=== PATIENT | female | born 1930 | race Caucasian/White ===

== ENCOUNTER 2017-06-08 09:23 | Emergency (ER) | payer MEDICARE, OTHER ==
--- NOTE | 2017-06-08 10:05 | RADIOLOGY REPORT (SQ) ---
EXAM DESCRIPTION: CHEST SINGLE VIEW COMPLETED DATE/TIME: 06/08/2017 9:54 am REASON FOR STUDY: cp COMPARISON: 05/12/2015 EXAM PARAMETERS: NUMBER OF VIEWS: One view. TECHNIQUE: Single frontal radiographic view of the chest acquired. RADIATION DOSE: NA LIMITATIONS: None. FINDINGS: LUNGS AND PLEURA: Chronic elevation left diaphragm. No evidence of pulmonary edema or pne umonia. MEDIASTINUM AND HILAR STRUCTURES: Stable. HEART AND VASCULAR STRUCTURES: Stable heart size. BONES: No acute findings. HARDWARE: None in the chest. OTHER: No other significant finding. IMPRESSION: NO ACUTE RADIOGRAPHIC FINDING IN THE CHEST. TECHNICAL DOCUMENTATION: JOB ID: [id number] [employer]- All Rights Reserved Reading location - IP/workstation name: [email or web address]
[2017-06-08] MEDS ORDERED: ASPIRIN 81 MG TABLET, CHEWABLE PO ONE (10:10)
[2017-06-08 10:12] LABS: ALANINE AMINOTRANSFERASE 20 U/L (9-52); ALBUMIN 3.9 g/dL (3.5-5.0); ALKALINE PHOSPHATASE 57 U/L (38-126); ANION GAP 13 (5-19); ASPARTATE AMINO TRANSFERASE 20 U/L (14-36); BILIRUBIN,DIRECT 0.3 mg/dL (0.0-0.4); BILIRUBIN,TOTAL 0.8 mg/dL (0.2-1.3); BLOOD UREA NITROGEN 21 mg/dL (7-20); CALCIUM 9.5 mg/dL (8.4-10.2); CARBON DIOXIDE 27 mmol/L (22-30); CHLORIDE 104 mmol/L (98-107); CREATINE KINASE 45 U/L (30-135); GLUCOSE 156 mg/dL (75-110); POTASSIUM 3.9 mmol/L (3.6-5.0); SODIUM 144.3 mmol/L (137-145); TOTAL PROTEIN 6.9 g/dL (6.3-8.2)
--- NOTE | 2017-06-08 10:13 | ER Document Report ---
ED Cardiac - General Chief Complaint: Chest Pain Stated Complaint: CHEST PAIN Time Seen by Provider: 06/08/17 09:49 Mode of Arrival: Medic Information source: Patient Notes: Pt is an 87 year old female with a history of HTN who presents to the ER today from assisted living for chest wall pain after she bent over to turkey picker the paper this morning and felt a pop in her left chest. She states at this time the pain is resolved, only tender to touch in one specific spot to the left chest. She denies shortness of breath, nausea, radiation of the pain anywhere. She has no history of heart attack or stroke. TRAVEL OUTSIDE OF THE [place] IN LAST 30 DAYS: No - Related Data Allergies/Adverse Reactions: No Known Allergies Allergy (Verified 06/08/17 09:46) Past Medical History - General Information source: Patient - Social History Smoking Status: Never Smoker Chew tobacco use (# tins/day): No Frequency of alcohol use: None Drug Abuse: None Family History: Reviewed & Not Pertinent Patient has suicidal ideation: No Patient has homicidal ideation: No - Past Medical History Cardiac Medical History: Reports: Hx Hypercholesterolemia, Hx Hypertension Denies: Hx Heart Attack Pulmonary Medical History: Denies: Hx Asthma Neurological Medical History: Denies: Hx Cerebrovascular Accident, Hx Seizures Renal/ Medical History: Denies: Hx Peritoneal Dialysis GI Medical History: Denies: Hx Hepatitis, Hx Hiatal Hernia, Hx Ulcer Infectious Medical History: Denies: Hx Hepatitis Past Surgical History: Reports: Hx Abdominal Surgery - Part of bowel removed, Hx Orthopedic Surgery - [place] left leg, right knee replacement. Denies: Hx Mastectomy, Hx Open Heart Surgery, Hx Pacemaker - Immunizations Hx Diphtheria, Pertussis, Tetanus Vaccination: Yes Hx Pneumococcal Vaccination: 02/10/14 Review of Systems - Review of Systems Constitutional: No symptoms reported EENT: No symptoms reported Cardiovascular: See HPI Respiratory: No symptoms reported Gastrointestinal: No symptoms reported Genitourinary: No symptoms reported Female Genitourinary: No symptoms reported Musculoskeletal: See HPI Skin: No symptoms reported Hematologic/Lymphatic: No symptoms reported Neurological/Psychological: No symptoms reported Physical Exam - Vital signs Vitals: Resp Pulse Ox 19 97 06/08/17 09:32 06/08/17 09:32 - Notes Notes: PHYSICAL EXAMINATION: GENERAL: Well-appearing and in no acute distress. HEAD: Atraumatic, normocephalic. EYES: Pupils equal round and reactive to light, extraocular movements intact, sclera anicteric, conjunctiva are normal. ENT: ear canals without erythema or foreign body, TMs pearly sotomayor with good bony landmarks, nares patent, oropharynx clear without exudates. Moist mucous membranes. airway patent NECK: Normal range of motion, supple without lymphadenopathy LUNGS: CTAB and equal. No wheezes rales or rhonchi. HEART: left anterior chest tender to palpation, Regular rate and rhythm without murmurs ABDOMEN: Soft, no tenderness. No guarding, no rebound BACK: no vertebral tenderness, normal ROM GI/: no CVA tenderness EXTREMITIES: Normal range of motion, no pitting edema. No cyanosis. NEUROLOGICAL: Cranial nerves grossly intact. Normal sensory/motor exams. PSYCH: Normal mood, normal affect. SKIN: Warm, Dry, normal turgor, no rashes or lesions noted Course - Re-evaluation Re-evalutation: 06/08/17 11:11 WBC is 20.3, cardiac enzymes normal, EKG without evidence of ischemia or abnormality, labwork otherwise unremarkable, chest x ray without abnormality/ pathology. Pt denies dysuria or fever/chills, cough, recent illness, feeling poorly at all. The pain in the left side of her chest has subsided and is only tender over one specific spot with one finger on deep palpation. She says "I feel great" and with family at bedside saying she's acting normally, I did give the option to do further workup but they decline and state "she'd like to go home." patient agrees with this and promises that if anything changes, she feels poorly, the chest pain returns, fever, nausea, vomiting, etc, that she will tell someone or call 911 to return for further workup. Pt is sound in mind and wants to go home with no further workup at this time. 06/08/17 21:15 - Vital Signs Vital signs: Temp Pulse Resp BP Pulse Ox 97.6 F 20 130/93 H 94 06/08/17 09:44 06/08/17 10:01 06/08/17 10:01 06/08/17 10:01 - Laboratory Result Diagrams: 06/08/17 09:33 06/08/17 09:33 Laboratory results interpreted by me: 04/29/18 04/29/18 09:33 09:33 WBC 20.3 H MCV 99 H Seg Neuts % (Manual) 32 L Lymphocytes % (Manual) 63 H Abs Lymphs (Manual) 12.8 H BUN 21 H Est GFR (Non-Af Amer) 50 L Glucose 156 H Discharge - Discharge Clinical Impression: Chest wall pain Condition: Stable Disposition: HOME, SELF-CARE Instructions: Chest Wall Pain ([facility]) Additional Instructions: Return immediately for any new or worsening symptoms. Follow up with primary care provider, call tomorrow to make followup appointment. Prescriptions: Naproxen 250 mg PO BID PRN #20 tablet PRN Reason:
[2017-06-08 10:18] LABS: HEMATOCRIT 45.9 % (36.0-47.0); HEMOGLOBIN 15.3 g/dL (12.0-15.5); MEAN CORPUSCULAR HEMOGLOBIN 32.9 pg (27.0-33.4); MEAN CORPUSCULAR HGB CONC 33.4 g/dL (32.0-36.0); MEAN CORPUSCULAR VOLUME 99 fl (80-97); PLATELET COUNT 186 10^3/uL (150-450); RED BLOOD COUNT 4.65 10^6/uL (3.72-5.28); RED CELL DISTRIBUTION WIDTH 13.3 % (11.5-14.0); WHITE BLOOD COUNT 20.3 10^3/uL (4.0-10.5)
[2017-06-08 10:24] LABS: CREATINE KINASE MB 0.43 ng/mL (<4.55)
[2017-06-08 10:25] LABS: TROPONIN I < 0.012 ng/mL
[2017-06-08 10:38] LABS: ABSOLUTE LYMPHOCYTES# (MANUAL) 12.8 10^3/uL (0.5-4.7); ABSOLUTE NEUTROPHILS# (MANUAL) 6.5 10^3/uL (1.7-8.2); BASOPHILS % (MANUAL) 0 % (0-2); EOSINOPHILS % (MANUAL) 0 % (0-6); LYMPHOCYTES % (MANUAL) 63 % (13-45); MONOCYTES % (MANUAL) 5 % (3-13); SEGMENTED NEUTROPHILS % (MAN) 32 % (42-78); TOTAL CELLS COUNTED 100
[2017-06-08 10:40] LABS: PLATELET COMMENT ADEQUATE; RBC MORPHOLOGY COMMENT NORMO-CYTIC/CHROMIC
[2017-06-08 10:43] VITALS: BP 130/93
--- NOTE | 2017-06-08 17:54 | EKG REPORT ---
SEVERITY:- ABNORMAL ECG - SINUS RHYTHM LEFT BUNDLE BRANCH BLOCK : Confirmed by: Mauricio Garcia MD 08-Jun-2017 17:54:14
== END 2017-06-08 10:56 | disposition home or self-care (01) ==
LOC: ER 09:23
DX: R07.89 Other chest pain (principal); I10 Essential (primary) hypertension; X50.9XXA Other and unspecified overexertion or strenuous movements or postures, initial encounter
CPT/HCPCS: 93005; 99285; 36415; 82553; 82550; 85025; 80053; 84484; 71045; 93010; A9270

== ENCOUNTER 2017-08-06 14:51 | Emergency (ER) | payer MEDICARE, OTHER ==
[2017-08-06 16:03] LABS: HEMATOCRIT 43.5 % (36.0-47.0); HEMOGLOBIN 14.9 g/dL (12.0-15.5); MEAN CORPUSCULAR HEMOGLOBIN 32.9 pg (27.0-33.4); MEAN CORPUSCULAR HGB CONC 34.2 g/dL (32.0-36.0); MEAN CORPUSCULAR VOLUME 96 fl (80-97); PLATELET COUNT 188 10^3/uL (150-450); RED BLOOD COUNT 4.52 10^6/uL (3.72-5.28); RED CELL DISTRIBUTION WIDTH 12.8 % (11.5-14.0); WHITE BLOOD COUNT 22.7 10^3/uL (4.0-10.5)
[2017-08-06 16:14] LABS: ALANINE AMINOTRANSFERASE 17 U/L (9-52); ALBUMIN 3.9 g/dL (3.5-5.0); ALKALINE PHOSPHATASE 76 U/L (38-126); ANION GAP 10 (5-19); ASPARTATE AMINO TRANSFERASE 20 U/L (14-36); BILIRUBIN,DIRECT 0.4 mg/dL (0.0-0.4); BLOOD UREA NITROGEN 18 mg/dL (7-20); CALCIUM 9.1 mg/dL (8.4-10.2); CARBON DIOXIDE 27 mmol/L (22-30); CHLORIDE 103 mmol/L (98-107); CREATINE KINASE 111 U/L (30-135); GLUCOSE 109 mg/dL (75-110); POTASSIUM 3.7 mmol/L (3.6-5.0); SODIUM 140.2 mmol/L (137-145); TOTAL PROTEIN 7.2 g/dL (6.3-8.2)
[2017-08-06 16:22] LABS: ABSOLUTE LYMPHOCYTES# (MANUAL) 14.1 10^3/uL (0.5-4.7); ABSOLUTE MONOCYTES # (MANUAL) 1.4 10^3/uL (0.1-1.4); ABSOLUTE NEUTROPHILS# (MANUAL) 7.3 10^3/uL (1.7-8.2); BASOPHILS % (MANUAL) 0 % (0-2); EOSINOPHILS % (MANUAL) 0 % (0-6); LYMPHOCYTES % (MANUAL) 60 % (13-45); MONOCYTES % (MANUAL) 6 % (3-13); PLATELET COMMENT ADEQUATE; SEGMENTED NEUTROPHILS % (MAN) 32 % (42-78); TOTAL CELLS COUNTED 100; TOXIC GRANULATION SLIGHT
[2017-08-06 16:25] LABS: CREATINE KINASE MB 0.94 ng/mL (<4.55); TROPONIN I < 0.012 ng/mL
--- NOTE | 2017-08-06 16:38 | RADIOLOGY REPORT (SQ) ---
EXAM DESCRIPTION: CHEST SINGLE VIEW COMPLETED DATE/TIME: 08/06/2017 4:29 pm REASON FOR STUDY: weakness COMPARISON: 06/08/2017 EXAM PARAMETERS: NUMBER OF VIEWS: One view. TECHNIQUE: Single frontal radiographic view of the chest acquired. RADIATION DOSE: NA LIMITATIONS: None. FINDINGS: LUNGS AND PLEURA: Hyperexpansion of the lungs. Elevated left hemidiaphragm. No infiltrat e or effusion. MEDIASTINUM AND HILAR STRUCTURES: No masses. Contour normal. HEART AND VASCULAR STRUCTURES: Borderline heart size. No pulmonary edema. BONES: No acute findings. HARDWARE: None in the chest. OTHER: No other significant finding. IMPRESSION: Chronic lung changes. Borderline cardiomegaly without pulmonary edema. TECHNICAL DOCUMENTATION: JOB ID: [id number] [employer]- All Rights Reserved Reading location - IP/workstation name: [email or web address]
[2017-08-06] MEDS ORDERED: DOXYCYCLINE HYCLATE 100 MG TABLET PO ONE (16:41)
--- NOTE | 2017-08-06 16:43 | ER Document Report ---
ED General - General Chief Complaint: Cough Stated Complaint: COUGH,WEAKNESS Time Seen by Provider: 08/06/17 16:30 Mode of Arrival: Ambulatory Information source: Patient Notes: 87-year-old female with hypertension, arthritis, mitral valve prolapse, anxiety presents via private vehicle from [facility] [employer] with complaint of cough and fatigue. Son and daughter at the bedside and states that patient has had a productive, persistent cough for 3 days. She has been receiving Tylenol and cough medicine from the nursing facility but states that they were advised that she needs to be seen by her primary care physician. They did attempt to see Dr. Martino today but he is booked. Patient was seen at urgent care who recommended she be seen in the emergency department. She denies any fever, chills, chest pain, shortness of breath, abdominal pain, nausea, vomiting, dysuria. She denies any recent hospitalizations. Patient admits to not taking her blood pressure medication today. She also admits to poor p.o. intake over the last 36 hours due to lack of appetite. TRAVEL OUTSIDE OF THE [place] IN LAST 30 DAYS: No - HPI Onset: Last week Onset/Duration: Gradual, Persistent Quality of pain: No pain Severity: None Associated symptoms: Other - Fatigue Exacerbated by: Denies Relieved by: Denies Similar symptoms previously: No Recently seen / treated by doctor: No - Related Data Allergies/Adverse Reactions: No Known Allergies Allergy (Verified 06/08/17 09:46) Past Medical History - General Information source: Patient, Relative, [facility] Records - Social History Smoking Status: Never Smoker Frequency of alcohol use: None Drug Abuse: None [facility] Family History: Reviewed & Not Pertinent Patient has suicidal ideation: No Patient has homicidal ideation: No - Past Medical History Cardiac Medical History: Reports: Hx Hypercholesterolemia, Hx Hypertension Denies: Hx Heart Attack Pulmonary Medical History: Denies: Hx Asthma Neurological Medical History: Denies: Hx Cerebrovascular Accident, Hx Seizures Renal/ Medical History: Denies: Hx Peritoneal Dialysis GI Medical History: Denies: Hx Hepatitis, Hx Hiatal Hernia, Hx Ulcer Infectious Medical History: Denies: Hx Hepatitis Past Surgical History: Reports: Hx Abdominal Surgery - Part of bowel removed, Hx Orthopedic Surgery - [place] left leg, right knee replacement. Denies: Hx Mastectomy, Hx Open Heart Surgery, Hx Pacemaker - Immunizations Hx Diphtheria, Pertussis, Tetanus Vaccination: Yes Hx Pneumococcal Vaccination: 02/10/14 Review of Systems - Review of Systems Notes: REVIEW OF SYSTEMS: CONSTITUTIONAL : Denies fever, chills, or sweats. Denies recent illness. Denies weight loss, recent hospitalizations. EENT: Denies visual changes, eye pain. Denies nasal or sinus congestion or discharge. Denies sore throat, oral lesions, difficulty swallowing. CARDIOVASCULAR: Denies chest pain. Denies palpitations. Denies lower extremity edema. RESPIRATORY: Denies shortness of breath, wheezing. GASTROINTESTINAL: Denies abdominal pain or distention. Denies nausea, vomiting , or diarrhea. Denies blood in vomitus, stools, or per rectum. Denies black, tarry stools. Denies constipation. GENITOURINARY: Denies difficulty urinating, painful urination, frequency, blood in urine, or vaginal discharge. MUSCULOSKELETAL: Denies back or neck pain or stiffness. Denies joint pain or swelling. SKIN: Denies rash, lesions or sores. HEMATOLOGIC : Denies easy bruising or bleeding. LYMPHATIC: Denies swollen glands. NEUROLOGICAL: Denies confusion or altered mental status. Denies passing out or loss of consciousness. Denies dizziness or lightheadedness. Denies headache. Denies weakness or paralysis. Denies problems difficulty with ambulation, slurred speech. Denies sensory loss, numbness, or tingling. Denies seizures. PSYCHIATRIC: Denies anxiety or stress. Denies depression, suicidal ideation, or homicidal ideation. Denies visual or auditory hallucinations. Physical Exam - Vital signs Vitals: Resp Pulse Ox 19 95 08/06/17 15:07 08/06/17 15:07 - Notes Notes: PHYSICAL EXAMINATION: GENERAL: Well-appearing, well-nourished and in no acute distress. HEAD: Atraumatic, normocephalic. EYES: Pupils equal round and reactive to light, extraocular movements intact, conjunctiva are normal. ENT: Nares patent, oropharynx clear without exudates. Moist mucous membranes. NECK: Normal range of motion, supple without lymphadenopathy LUNGS: Breath sounds clear to auscultation bilaterally and equal. No wheezes rales or rhonchi. HEART: Regular rate and rhythm without murmurs ABDOMEN: Soft, nontender, nondistended abdomen. No guarding, no rebound. No masses appreciated. Female : deferred Musculoskeletal: Normal range of motion, no pitting or edema. No cyanosis. NEUROLOGICAL: Cranial nerves grossly intact. Normal speech, normal gait. Normal sensory, motor exams PSYCH: Normal mood, normal affect. SKIN: Warm, Dry, normal turgor, no rashes or lesions noted. Course - Re-evaluation Re-evalutation: Laboratory 08/06/17 08/06/17 08/06/17 15:00 15:00 15:00 WBC 22.7 H RBC 4.52 Hgb 14.9 Hct 43.5 MCV 96 MCH 32.9 MCHC 34.2 RDW 12.8 Plt Count 188 Total Counted 100 Seg Neutrophils % Not Reportable Seg Neuts % (Manual) 32 L Lymphocytes % Not Reportable Lymphocytes % (Manual) 60 H Atypical Lymphs % 2 Monocytes % Not Reportable Monocytes % (Manual) 6 Eosinophils % Not Reportable Eosinophils % (Manual) 0 Basophils % Not Reportable Basophils % (Manual) 0 Absolute Neutrophils Not Reportable Abs Neuts (Manual) 7.3 Absolute Lymphocytes Not Reportable Abs Lymphs (Manual) 14.1 H Absolute Monocytes Not Reportable Abs Monocytes (Manual) 1.4 Absolute Eosinophils Not Reportable Absolute Eos (Manual) 0.0 Absolute Basophils Not Reportable Abs Basophils (Manual) 0.0 Toxic Granulation SLIGHT Platelet Comment ADEQUATE Sodium 140.2 Potassium 3.7 Chloride 103 Carbon Dioxide 27 Anion Gap 10 BUN 18 Creatinine 0.93 Est GFR ( Amer) > 60 Est GFR (Non-Af Amer) 57 L Glucose 109 Calcium 9.1 Total Bilirubin 1.0 Direct Bilirubin 0.4 Neonat Total Bilirubin Not Reportable Neonat Direct Bilirubin Not Reportable Neonat Indirect Bili Not Reportable AST 20 ALT 17 Alkaline Phosphatase 76 Creatine Kinase 111 CK-MB (CK-2) 0.94 Troponin I < 0.012 Total Protein 7.2 Albumin 3.9 Chest X-Ray 08/06/17 00:00 IMPRESSION: Chronic lung changes. Borderline cardiomegaly without pulmonary edema. 87-year-old female with hypertension, arthritis, mitral valve prolapse, anxiety presents via private vehicle from [employer] with complaint of cough and fatigue. Son and daughter at the bedside and states that patient has had a productive, persistent cough for 3 days. She has been receiving Tylenol and cough medicine from the nursing facility but states that they were advised that she needs to be seen by her primary care physician. Patient was seen by myself upon arrival. Vital signs were reviewed. Patient is afebrile, hypertensive but not hypoxic. Patient does not appear toxic or dehydrated. They are in no acute distress. Previous medical records and nursing notes reviewed. Significant findings include a leukocytosis of 22. Cardiac enzymes within normal limits. CMP shows no electrolyte abnormalities. Patient received her first dose of doxycycline in the department. 08/06/17 16:43 Curb 65 score is 1 making the patient low risk for 30 day mortality. Patient ambulated on pulse ox and maintained an oxygen saturation above 95%. She had no associated tachycardia or lightheadedness. 08/06/17 17:07 08/06/17 19:16 Patient reevaluated. She is resting comfortably. She has no complaints. She is tolerating fluids. Patient provided the opportunity to ask questions, and express concerns. Discharge instructions discussed. Patient is agreeable with discharge home. Return indications explained and discussed with the patient who displays understanding. Patient encouraged to return to the emergency department immediately with any concerns. 08/06/17 21:52 - Vital Signs Vital signs: Temp Pulse Resp BP Pulse Ox 79 18 173/82 H 96 08/06/17 17:06 08/06/17 16:03 08/06/17 17:06 08/06/17 16:03 - Laboratory Result Diagrams: 08/06/17 15:00 08/06/17 15:00 Laboratory results interpreted by me: 08/06/17 08/06/17 15:00 15:00 WBC 22.7 H Seg Neuts % (Manual) 32 L Lymphocytes % (Manual) 60 H Abs Lymphs (Manual) 14.1 H Est GFR (Non-Af Amer) 57 L - Diagnostic Test Radiology reviewed: Image reviewed - EKG Interpretation by [place] EKG shows normal: Sinus rhythm Rate: Normal Rhythm: NSR [place]/QRS: LBBB When compared to previous EKG there are: No significant change Discharge - Discharge Clinical Impression: LBBB (left bundle branch block) URI (upper respiratory infection) Qualifiers: URI type: unspecified URI Qualified Code(s): J06.9 - Acute upper respiratory infection, unspecified Leukocytosis Qualifiers: Leukocytosis type: unspecified Qualified Code(s): D72.829 - Elevated white blood cell count, unspecified Condition: Good Disposition: HOME, SELF-CARE Instructions: Upper Respiratory Illness ([facility]), Upper Respiratory Infection, Infant or Child ([facility]), Viral Syndrome ([facility]) Additional Instructions: Follow up with your physician tomorrow for further care or return to the ED IMMEDIATELY if symptoms worsen or new concerns occur. If you cannot afford to follow up with your primary care physician a list of low cost clinics have been provided at the end of your discharge papers as well. Prescriptions: Benzonatate [Tessalon Perle 100 mg Capsule] 200 mg PO BID #20 cap Doxycycline Hyclate 100 mg PO BID #14 capsule Forms: Elevated Blood Pressure Referrals: SEAN MARTINO MD [Primary Care Provider] - Follow up as needed
[2017-08-06] MEDS ORDERED: NORMAL SALINE 500 ML IV ONE (17:04)
[2017-08-06 17:08] VITALS: BP 173/82
--- NOTE | 2017-08-07 07:41 | EKG REPORT ---
SEVERITY:- ABNORMAL ECG - SINUS RHYTHM ATRIAL PREMATURE COMPLEX LEFT BUNDLE BRANCH BLOCK : Confirmed by: Valentine Santoro MD 07-Aug-2017 07:40:18
== END 2017-08-06 20:50 | disposition home or self-care (01) ==
LOC: ER 14:51
DX: I44.7 Left bundle-branch block, unspecified (principal); J06.9 Acute upper respiratory infection, unspecified; D72.829 Elevated white blood cell count, unspecified; R05 Cough; R53.1 Weakness; R53.83 Other fatigue; I10 Essential (primary) hypertension
CPT/HCPCS: 93005; 99284; 36415; 82553; 82550; 85025; 80053; 84484; 71045; 93010; A9270

== ENCOUNTER 2017-08-30 13:10 | Inpatient (IN) | payer MEDICARE, OTHER ==
[2017-08-30] MEDS ORDERED: NORMAL SALINE 1000 ML 1,000 ML IV ONE (13:29)
--- NOTE | 2017-08-30 13:39 | ER Document Report ---
ED General - General Chief Complaint: General Weakness Stated Complaint: WEAKNESS Time Seen by Provider: 08/30/17 13:16 Mode of Arrival: Stretcher Information source: Patient, Relative TRAVEL OUTSIDE OF THE [place] IN LAST 30 DAYS: No - HPI Patient complains to provider of: Generalized weakness, no appetite, poor p.o. intake Onset: Last week Onset/Duration: Persistent Quality of pain: Achy Severity: Moderate Pain Level: 3 Notes: Patient is an 87-year-old female brought to the room by son for complaints of generalized weakness with nausea, poor p.o. intake, decreased energy, recently diagnosed with pneumonia, completed a course of doxycycline, then had a urinary tract infection and completed antibiotics as well, but over the past 2 weeks she has barely had much p.o. intake, stating that she just has no appetite, she continues to have a nonproductive cough at times, denies any vomiting or diarrhea, uses laxatives to have a bowel movement - Related Data Allergies/Adverse Reactions: No Known Allergies Allergy (Verified 06/08/17 09:46) Past Medical History - General Information source: Patient, Relative - Social History Smoking Status: Never Smoker Chew tobacco use (# tins/day): No Frequency of alcohol use: None Drug Abuse: None Family History: Reviewed & Not Pertinent Patient has suicidal ideation: No Patient has homicidal ideation: No - Past Medical History Cardiac Medical History: Reports: Hx Hypercholesterolemia, Hx Hypertension Denies: Hx Heart Attack Pulmonary Medical History: Denies: Hx Asthma Neurological Medical History: Denies: Hx Cerebrovascular Accident, Hx Seizures Renal/ Medical History: Denies: Hx Peritoneal Dialysis GI Medical History: Denies: Hx Hepatitis, Hx Hiatal Hernia, Hx Ulcer Infectious Medical History: Denies: Hx Hepatitis Past Surgical History: Reports: Hx Abdominal Surgery - Part of bowel removed, Hx Orthopedic Surgery - [place] left leg, right knee replacement. Denies: Hx Mastectomy, Hx Open Heart Surgery, Hx Pacemaker - Immunizations Hx Diphtheria, Pertussis, Tetanus Vaccination: Yes Hx Pneumococcal Vaccination: 02/10/14 Review of Systems - Review of Systems Constitutional: Weakness EENT: No symptoms reported Cardiovascular: No symptoms reported Respiratory: See HPI Gastrointestinal: See HPI Genitourinary: No symptoms reported Female Genitourinary: No symptoms reported Musculoskeletal: No symptoms reported Skin: No symptoms reported Hematologic/Lymphatic: No symptoms reported Neurological/Psychological: No symptoms reported -: Yes All other systems reviewed and negative Physical Exam - Vital signs Vitals: Temp 97.8 F 08/30/17 13:13 Interpretation: Normal - General General appearance: Appears well, Alert - HEENT Head: Normocephalic, Atraumatic Eyes: Normal Pupils: PERRL - Respiratory Respiratory status: No respiratory distress Chest status: Nontender Breath sounds: Normal Chest palpation: Normal - Cardiovascular Rhythm: Regular Heart sounds: Normal auscultation Murmur: No - Abdominal Inspection: Normal Distension: No distension Bowel sounds: Normal Tenderness: Tender - Mild diffuse tenderness Organomegaly: No organomegaly - Back Back: Normal, Nontender - Extremities General upper extremity: Normal inspection, Nontender, Normal color, Normal ROM , Normal temperature General lower extremity: Normal inspection, Nontender, Normal color, Normal ROM , Normal temperature, Normal weight bearing. No: Elin's sign - Neurological Neuro grossly intact: Yes Cognition: Normal Orientation: AAOx4 Jenni Coma Scale Eye Opening: Spontaneous [place] Coma Scale Verbal: Oriented Jenni Coma Scale Motor: Obeys Commands [place] Coma Scale Total: 15 Speech: Normal Motor strength normal: LUE, RUE, LLE, RLE Sensory: Normal - Psychological Associated symptoms: Normal affect, Normal mood - Skin Skin Temperature: Warm Skin Moisture: Dry Skin Color: Normal Course - Re-evaluation Re-evalutation: 08/30/17 17:48 During her course of stay in the emergency department patient developed profuse watery odorous diarrhea consistent with likely C. difficile, this would make sense with her leukocytosis as well as her history of recent antibiotic use, C. difficile PCR is pending but this is the presumptive diagnosis now that patient is having diarrhea, therefore started on Vanco and Flagyl, and discussed with the hospitalist service who will admit for further evaluation and treatment - Vital Signs Vital signs: Temp Pulse Resp BP Pulse Ox 97.4 F 75 13 137/74 H 98 08/30/17 17:14 08/30/17 13:14 08/30/17 17:00 08/30/17 16:00 08/30/17 17:00 - Laboratory Result Diagrams: 08/30/17 14:37 08/30/17 14:37 Laboratory results interpreted by me: 08/30/17 08/30/17 08/30/17 14:37 14:37 16:48 WBC 36.8 H* Seg Neuts % (Manual) 27 L Lymphocytes % (Manual) 72 H Monocytes % (Manual) 0 L Abs Neuts (Manual) 9.9 H Abs Lymphs (Manual) 26.5 H Abs Monocytes (Manual) 0.0 L Sodium 131.2 L Carbon Dioxide 21 L Est GFR (Non-Af Amer) 55 L Ur Leukocyte Esterase SMALL H - Diagnostic Test Radiology reviewed: Image reviewed, Reports reviewed Discharge - Discharge Clinical Impression: Systemic inflammatory response syndrome, Clostridium difficile diarrhea Leukocytosis Qualifiers: Leukocytosis type: unspecified Qualified Code(s): D72.829 - Elevated white blood cell count, unspecified Diarrhea Qualifiers: Diarrhea type: infectious Qualified Code(s): A09 - Infectious gastroenteritis and colitis, unspecified Condition: Fair Disposition: ADMITTED INPATIENT Admitting Provider: Hospitalist Unit Admitted: Medical Floor Referrals: SEAN MARTINO MD [Primary Care Provider] - Follow up as needed
--- NOTE | 2017-08-30 14:29 | RADIOLOGY REPORT (SQ) ---
EXAM DESCRIPTION: CHEST 2 VIEWS COMPLETED DATE/TIME: 08/30/2017 2:11 pm REASON FOR STUDY: cough COMPARISON: None. EXAM PARAMETERS: NUMBER OF VIEWS: two views TECHNIQUE: Digital Frontal and Lateral radiographic views of the chest acquired. RADIATION DOSE: NA LIMITATIONS: none FINDINGS: LUNGS AND PLEURA: Hyperinflation. Fibrotic scarring at left lung base with left pleural t hickening. Elevation left hemidiaphragm. MEDIASTINUM AND HILAR STRUCTURES: No masses or contour abnormalities. HEART AND VASCULAR STRUCTURES: The heart is normal with aortic atherosclerosis. . BONES: Dorsal spondylosis. HARDWARE: Surgical clips right upper quadrant. OTHER: Chest leads in place. IMPRESSION: Findings consistent with COPD. Chronic left basilar scarring and elevation left hemidia phragm. TECHNICAL DOCUMENTATION: JOB ID: [id number] [employer]- All Rights Reserved Reading location - IP/workstation name: [email or web address]
[2017-08-30 15:05] LABS: HEMATOCRIT 42.3 % (36.0-47.0); HEMOGLOBIN 14.3 g/dL (12.0-15.5); MEAN CORPUSCULAR HEMOGLOBIN 32.5 pg (27.0-33.4); MEAN CORPUSCULAR HGB CONC 33.9 g/dL (32.0-36.0); MEAN CORPUSCULAR VOLUME 96 fl (80-97); PLATELET COUNT 182 10^3/uL (150-450); RED BLOOD COUNT 4.41 10^6/uL (3.72-5.28); RED CELL DISTRIBUTION WIDTH 13.5 % (11.5-14.0)
[2017-08-30 15:20] LABS: ALANINE AMINOTRANSFERASE 19 U/L (9-52); ALBUMIN 3.5 g/dL (3.5-5.0); ALKALINE PHOSPHATASE 80 U/L (38-126); ANION GAP 11 (5-19); ASPARTATE AMINO TRANSFERASE 22 U/L (14-36); BILIRUBIN,DIRECT 0.3 mg/dL (0.0-0.4); BILIRUBIN,TOTAL 0.6 mg/dL (0.2-1.3); BLOOD UREA NITROGEN 13 mg/dL (7-20); CALCIUM 9.7 mg/dL (8.4-10.2); CARBON DIOXIDE 21 mmol/L (22-30); CHLORIDE 99 mmol/L (98-107); GLUCOSE 105 mg/dL (75-110); POTASSIUM 4.9 mmol/L (3.6-5.0); SODIUM 131.2 mmol/L (137-145); TOTAL PROTEIN 6.8 g/dL (6.3-8.2)
[2017-08-30 15:30] LABS: ABSOLUTE LYMPHOCYTES# (MANUAL) 26.5 10^3/uL (0.5-4.7); ABSOLUTE NEUTROPHILS# (MANUAL) 9.9 10^3/uL (1.7-8.2); BASOPHILS % (MANUAL) 0 % (0-2); EOSINOPHILS % (MANUAL) 1 % (0-6); LYMPHOCYTES % (MANUAL) 72 % (13-45); MONOCYTES % (MANUAL) 0 % (3-13); SEGMENTED NEUTROPHILS % (MAN) 27 % (42-78); TOTAL CELLS COUNTED 100
[2017-08-30 15:31] LABS: PLATELET CLUMPS PRESENT; PLATELET COMMENT ADEQUATE; RBC MORPHOLOGY COMMENT NORMO-CYTIC/CHROMIC
[2017-08-30 15:36] LABS: WHITE BLOOD COUNT 36.8 10^3/uL (4.0-10.5)
[2017-08-30] MEDS ORDERED: VANCOMYCIN HCL INJ 500 MG VIAL PO ONE (17:02)
[2017-08-30] MEDS ORDERED: METRONIDAZOLE RTU 500 MG/NS 100 ML IV ONE (17:02)
[2017-08-30 17:27] LABS: APPEARANCE,URINE SLIGHTLY-CLOUDY; BILIRUBIN,URINE NEGATIVE (NEGATIVE); COLOR,URINE YELLOW; GLUCOSE, URINE NEGATIVE (NEGATIVE); KETONES,URINE NEGATIVE (NEGATIVE); LEUKOCYTE ESTERASE,URINE SMALL (NEGATIVE); NITRITE,URINE NEGATIVE (NEGATIVE); PROTEIN,URINE NEGATIVE (NEGATIVE); URINE SPECIFIC GRAVITY 1.023; UROBILINOGEN,URINE NEGATIVE mg/dL (<2.0)
--- NOTE | 2017-08-30 17:29 | RADIOLOGY REPORT (SQ) ---
EXAM DESCRIPTION: CT ABD/PELVIS WITH IV ORAL COMPLETED DATE/TIME: 08/30/2017 4:31 pm REASON FOR STUDY: abdominal pain . Diffuse abdominal pain. COMPARISON: CT abdomen and pelvis 05/12/2015, 04/30/2015 TECHNIQUE: CT scan of the abdomen and pelvis performed using helical scanning technique with dynamic intravenous contrast injection and with oral contrast. Images reviewed with lung, soft tissue, and b one windows. Reconstructed coronal and sagittal MPR images reviewed. Delayed images for evaluation of the urinary system also acquired. All images stored on PACS. All CT scanners at this facility use dose modulation, iterative reconstruction, and/or weight based d osing when appropriate to reduce radiation dose to as low as reasonably achievable (ALARA). [facility]: Dose Right [facility]: CareDose [facility]: Dose Right [facility]: Teradose 4D [facility]: [email or web address] CONTRAST TYPE AND DOSE: contrast/concentration: Isovue 370.00 mg/ml; Total Contrast Delivered: 90.0 ml; Total Saline Delivered: 70.0 ml RENAL FUNCTION: Creatinine 0.95 RADIATION DOSE: CT Rad equipment meets quality standard of care and radiation dose reduction techniq ues were employed. CTDIvol: 12.2 - 15.8 mGy. DLP: 2235 mGy-cm.. LIMITATIONS: None. FINDINGS: LOWER CHEST: No consolidation or pleural effusion. LIVER: Normal size. No masses. No dilated ducts. SPLEEN: Normal size. PANCREAS: No significant calcifications. No adjacent inflammation or peripancreatic fluid collections . Pancreatic duct not dilated. GALLBLADDER: Surgically absent. ADRENAL GLANDS: No significant masses or asymmetry. RIGHT KIDNEY AND URETER: There is an 11 mm hyperdense nodule at the superior pole of the right kidney . No significant calcifications. 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 No hydroureter. LEFT KIDNEY AND URETER: No solid masses. No significant calcifications. No hydronephrosis or hydr oureter. AORTA AND VESSELS: Atherosclerotic calcifications in the abdominal aorta and its branches. No abdomi nal aortic aneurysm. RETROPERITONEUM: No retroperitoneal hemorrhage or masses. BOWEL AND PERITONEAL CAVITY: No bowel obstruction, the oral contrast has reached the rectum. Air-flu id levels are seen throughout the colon and at the rectum. Postsurgical changes are noted at the sig moid. No free fluid or free air. APPENDIX: Normal. PELVIS: The urinary bladder is decompressed. The uterus is present. There is a 3.0 cm cystic lesion at the left adnexa. There is a 2.0 cm cystic lesion at the right adnexa. No free fluid. ABDOMINAL WALL: There is a small loculated paraumbilical hernia with segments of the colon protruding to the hernia defect. BONES: Orthopedic hardware transfixing the proximal left femur. Multilevel degenerative changes are seen within the spine. IMPRESSION: 1. No bowel obstruction. Air-fluid levels at the colon and at the rectum, suggestive o f diarrhea. 2. Small loculated paraumbilical hernia with segments of the colon protruding into the hernia defect. 3. 11 mm hyperdense nodule at the superior pole of the right kidney, neoplasm cannot be excluded. 4. Cystic lesions at the bilateral adnexal regions. These can be better characterized with nonemerg ent pelvic ultrasound. TECHNICAL DOCUMENTATION: JOB ID: [id number] Quality ID # [id number]: Final reports with documentation of one or more dose reduction techniques (e.g., Au tomated exposure control, adjustment of the mA and/or kV according to patient size, use of iterative reconstruction technique) 2010 [employer]- All Rights Reserved Reading location - IP/workstation name: [email or web address]
[2017-08-30] MEDS ORDERED: ACETAMINOPHEN 325 MG TABLET PO PRN (17:58)
[2017-08-30] MEDS ORDERED: ONDANSETRON HCL INJ/PF 4 MG/2 ML SDV IV PRN (17:58)
--- NOTE | 2017-08-30 18:13 | PDOC H&P ---
History of Present Illness Admission Date/PCP: SEAN MARTINO MD History of Present Illness: PRAFUL SILVA is a 87 year old female who does not have significant medical history except hypothyroidism and hypertension brought from [facility] with chief complaints of generalized weakness, nausea, poor appetite and decreased activity. Patient was recently diagnosed with pneumonia for which she was treated with doxycycline and also urinary tract infection for which she was treated with Levaquin. Patient also noticed to have very foul-smelling watery diarrhea while she is at ER. There is no report of fever, chills, palpitation or diaphoresis. She has nausea but no vomiting or abdominal pain. No urinary complaints. No dizziness, blurring of vision or any seizure activity. Her initial blood workup is remarkable for severe leukocytosis of 36.8. Her CT of the abdomen and pelvis is unremarkable. Past Medical History Cardiac Medical History: Reports: Hyperlipidema, Hypertension Denies: Atrial Fibrillation, Congestive Heart Failure, Myocardial Infarction Pulmonary Medical History: Reports: Pneumonia Denies: Asthma, Bronchitis, Chronic Obstructive Pulmonary Disease (COPD), Tuberculosis Neurological Medical History: Denies: Migraine, Seizures Endocrine Medical History: Denies: Diabetes Mellitus Type 1, Diabetes Mellitus Type 2 Renal/ Medical History: Denies: End Stage Renal Disease GI Medical History: Denies: Gastroesophageal Reflux Disease, Hepatitis, Hiatal Hernia Musculoskeltal Medical History: Reports: Arthritis Psychiatric Medical History: Denies: Attention Deficit Hyperactivity Disorder, Bipolar Disorder, Depression Hematology: Denies: Anemia, Sickle Cell Disease Past Surgical History Past Surgical History: Reports: Orthopedic Surgery - [place] left leg, right knee replacement, Other - Operative for bowel perforation due to diverticulitis Denies: Amputation, Mastectomy, Pacemaker Social History Smoking Status: Never Smoker Frequency of Alcohol Use: None Hx Recreational Drug Use: No Drugs: None Hx Prescription Drug Abuse: No - Advance Directive Resuscitation Status: Full Code Family History Family History: Reviewed & Not Pertinent, Hypertension Parental Family History Reviewed: Yes Children Family History Reviewed: Yes Sibling(s) Family History Reviewed.: Yes Medication/Allergy Home Medications: Aspirin [Ecotrin 81 mg EC Tablet] 81 mg PO DAILY 10/07/11 Cholecalciferol (Vitamin D3) [Vitamin D3 1000 unit Capsule] 1,000 unit PO DAILY 10/07/11 Metoprolol Succinate [Toprol Xl 50 mg Tab.sr] 100 mg PO DAILY 10/07/11 Levothyroxine Sodium [Synthroid] 100 mcg PO DAILY 11/11/13 Losartan Potassium 50 mg PO DAILY 11/11/13 Lactulose [Cephulac Syrup 20 gm/30 ml Udcup] 20 gm PO QHS #120 ml 05/08/15 Famotidine [Pepcid 20 mg Tablet] 20 mg PO Q12 tablet 05/18/15 Hydrocodone Bit/Homatropine [Hycodan 5-1.5 mg Tablet] 1 tab PO Q4HP PRN #20 tablet 05/18/15 Levofloxacin [Levaquin 750 mg Tablet] 750 mg PO DAILY tablet 05/18/15 Psyllium Husk [Metamucil] 425 gm PO BID #30 powder 05/18/15 Naproxen 250 mg PO BID PRN #20 tablet 06/08/17 Benzonatate [Tessalon Perle 100 mg Capsule] 200 mg PO BID #20 cap 08/06/17 Doxycycline Hyclate 100 mg PO BID #14 capsule 08/06/17 Allergies/Adverse Reactions: No Known Allergies Allergy (Verified 06/08/17 09:46) Review of Systems Constitutional: PRESENT: as per HPI Eyes: PRESENT: as per HPI Nose, Mouth, and Throat: PRESENT: as per HPI Cardiovascular: PRESENT: as per HPI Respiratory: PRESENT: as per HPI Gastrointestinal: PRESENT: as per HPI Neurological: PRESENT: as per HPI Psychiatric: PRESENT: as per HPI Physical Exam Vital Signs: Temp Pulse Resp BP Pulse Ox 97.4 F 75 13 137/74 H 98 08/30/17 17:14 08/30/17 13:14 08/30/17 17:00 08/30/17 16:00 08/30/17 17:00 Intake & Output 08/29/17 08/30/17 08/31/17 06:59 06:59 06:59 Weight 83.5 kg General appearance: PRESENT: no acute distress Head exam: PRESENT: atraumatic Eye exam: PRESENT: conjunctiva pink Mouth exam: PRESENT: moist Neck exam: ABSENT: carotid bruit, JVD, lymphadenopathy, thyromegaly Respiratory exam: PRESENT: clear to auscultation iris. ABSENT: rales, rhonchi, wheezes Cardiovascular exam: PRESENT: RRR. ABSENT: diastolic murmur, rubs, systolic murmur GI/Abdominal exam: PRESENT: normal bowel sounds, soft. ABSENT: distended, guarding, mass, organolmegaly, rebound, tenderness Extremities exam: PRESENT: full ROM. ABSENT: calf tenderness, clubbing, pedal edema Neurological exam: PRESENT: alert, oriented to time, oriented to situation Psychiatric exam: PRESENT: normal mood Results Laboratory Results: 08/30/17 14:37 08/30/17 14:37 08/30/17 08/30/17 08/30/17 14:37 14:37 14:37 WBC 36.8 H* RBC 4.41 Hgb 14.3 Hct 42.3 MCV 96 MCH 32.5 MCHC 33.9 RDW 13.5 Plt Count 182 Seg Neutrophils % Not Reportable Lymphocytes % Not Reportable Monocytes % Not Reportable Eosinophils % Not Reportable Basophils % Not Reportable Absolute Neutrophils Not Reportable Absolute Lymphocytes Not Reportable Absolute Monocytes Not Reportable Absolute Eosinophils Not Reportable Absolute Basophils Not Reportable Sodium 131.2 L Potassium 4.9 Chloride 99 Carbon Dioxide 21 L Anion Gap 11 BUN 13 Creatinine 0.95 Est GFR ( Amer) > 60 Est GFR (Non-Af Amer) 55 L Glucose 105 Lactic Acid 0.9 Calcium 9.7 Total Bilirubin 0.6 AST 22 ALT 19 Alkaline Phosphatase 80 Total Protein 6.8 Albumin 3.5 Urine Color Urine Appearance Urine pH Ur Specific Carpenter Urine Protein Urine Glucose (UA) Urine Ketones Urine Blood Urine Nitrite Ur Leukocyte Esterase Urine WBC (Auto) Urine RBC (Auto) 08/30/17 16:48 WBC RBC Hgb Hct MCV MCH MCHC RDW Plt Count Seg Neutrophils % Lymphocytes % Monocytes % Eosinophils % Basophils % Absolute Neutrophils Absolute Lymphocytes Absolute Monocytes Absolute Eosinophils Absolute Basophils Sodium Potassium Chloride Carbon Dioxide Anion Gap BUN Creatinine Est GFR ( Amer) Est GFR (Non-Af Amer) Glucose Lactic Acid Calcium Total Bilirubin AST ALT Alkaline Phosphatase Total Protein Albumin Urine Color YELLOW Urine Appearance SLIGHTLY-CLOUDY Urine pH 6.0 Ur Specific Carpenter 1.023 Urine Protein NEGATIVE Urine Glucose (UA) NEGATIVE Urine Ketones NEGATIVE Urine Blood NEGATIVE Urine Nitrite NEGATIVE Ur Leukocyte Esterase SMALL H Urine WBC (Auto) 8 Urine RBC (Auto) 1 08/30/17 14:37 Troponin I < 0.012 Impressions: Abdomen/Pelvis CT 08/30/17 13:29 IMPRESSION: 1. No bowel obstruction. Air-fluid levels at the colon and at the rectum, suggestive of diarrhea. 2. Small loculated paraumbilical hernia with segments of the colon protruding into the hernia defect. 3. 11 mm hyperdense nodule at the superior pole of the right kidney, neoplasm cannot be excluded. 4. Cystic lesions at the bilateral adnexal regions. These can be better characterized with nonemergent pelvic ultrasound. Chest X-Ray 08/30/17 13:29 IMPRESSION: Findings consistent with COPD. Chronic left basilar scarring and elevation left hemidiaphragm. Assessment & Plan - Diagnosis (1) Leukocytosis Is this a current diagnosis for this admission?: Yes Plan: Her white cell count is 36.8 We will monitor her white cell count daily. (2) Clostridium difficile colitis Is this a current diagnosis for this admission?: Yes Plan: This is a clinical diagnosis based on very foul-smelling stool and markedly leukocytosis. Patient started on p.o. Flagyl and vancomycin (3) Hypothyroidism (acquired) Is this a current diagnosis for this admission?: Yes Plan: Continue her home Synthroid (4) Hypertension Qualifiers: Hypertension type: essential hypertension Qualified Code(s): I10 - Essential (primary) hypertension Is this a current diagnosis for this admission?: Yes Plan: Continue her home medication
--- NOTE | 2017-08-30 21:59 | EKG REPORT ---
SEVERITY:- ABNORMAL ECG - SINUS RHYTHM LEFT BUNDLE BRANCH BLOCK : Confirmed by: Tino Fuller 30-Aug-2017 21:58:16
[2017-08-30] MEDS: METRONIDAZOLE 500 MG TABLET PO SCH (22:36)
[2017-08-30] MEDS ORDERED: VANCOMYCIN HCL INJ 500 MG VIAL ONE (23:59)
[2017-08-31] MEDS: VANCOMYCIN HCL INJ 500 MG VIAL PO SCH ×3 (00:54→13:07)
[2017-08-31] MEDS: METRONIDAZOLE 500 MG TABLET PO SCH ×2 (05:42→13:33)
[2017-08-31] MEDS: LANSOPRAZOLE 30 MG TAB.RAP.DR PO SCH (05:43)
[2017-08-31 06:04] LABS: HEMOGLOBIN 12.6 g/dL (12.0-15.5); MEAN CORPUSCULAR HEMOGLOBIN 32.4 pg (27.0-33.4); MEAN CORPUSCULAR VOLUME 95 fl (80-97); PLATELET COUNT 171 10^3/uL (150-450); RED BLOOD COUNT 3.88 10^6/uL (3.72-5.28); RED CELL DISTRIBUTION WIDTH 13.5 % (11.5-14.0); WHITE BLOOD COUNT 29.5 10^3/uL (4.0-10.5)
[2017-08-31 06:14] LABS: ANION GAP 8 (5-19); BLOOD UREA NITROGEN 10 mg/dL (7-20); CALCIUM 8.4 mg/dL (8.4-10.2); CARBON DIOXIDE 20 mmol/L (22-30); CHLORIDE 105 mmol/L (98-107); GLUCOSE 81 mg/dL (75-110); POTASSIUM 4.1 mmol/L (3.6-5.0); SODIUM 132.9 mmol/L (137-145)
[2017-08-31 08:01] LABS: ABSOLUTE LYMPHOCYTES# (MANUAL) 16.5 10^3/uL (0.5-4.7); ABSOLUTE MONOCYTES # (MANUAL) 0.6 10^3/uL (0.1-1.4); ABSOLUTE NEUTROPHILS# (MANUAL) 12.4 10^3/uL (1.7-8.2); BASOPHILS % (MANUAL) 0 % (0-2); EOSINOPHILS % (MANUAL) 0 % (0-6); LYMPHOCYTES % (MANUAL) 56 % (13-45); MONOCYTES % (MANUAL) 2 % (3-13); SEGMENTED NEUTROPHILS % (MAN) 42 % (42-78); TOTAL CELLS COUNTED 100
[2017-08-31 08:02] LABS: PLATELET COMMENT ADEQUATE; RBC MORPHOLOGY COMMENT NORMO-CYTIC/CHROMIC; SMUDGE CELLS PRESENT
[2017-08-31] MEDS: ENOXAPARIN SODIUM INJ 30 MG/0.3 ML DISP.SYRIN SUBCUT SCH (10:23)
[2017-08-31] MEDS: METRONIDAZOLE 500 MG/NS RTU 500 MG/100 ML RTUPB IV SCH ×2 (17:29→23:37)
--- NOTE | 2017-08-31 18:58 | PDOC PROGRESS REPORT ---
Subjective Progress Note for:: 08/31/17 Subjective:: This is 87 years old female patient transferred from [facility] for weakness and diarrhea. Based on markedly leukocytosis and foul- smelling stool the diagnosis of Clostridium difficile colitis was entertained and patient started on p.o. Vanco and metronidazole. Her stool test for Clostridium difficile returned negative. But patient has been doing clinically well her white cell count trended down from 36.8-29. I discontinued vancomycin and I switch her metronidazole to IV and and added Cipro for her. Reason For Visit: C. DIFFICILE COLITIS Physical Exam Vital Signs: Temp Pulse Resp BP Pulse Ox 98.4 F 77 18 116/53 L 96 08/31/17 16:00 08/31/17 16:00 08/31/17 16:00 08/31/17 16:00 08/31/17 16:00 Intake & Output 08/30/17 08/31/17 09/01/17 06:59 06:59 06:59 Intake Total 1998 Output Total 200 Balance 1798 Weight 84.9 kg General appearance: PRESENT: no acute distress, well-developed, well-nourished Head exam: PRESENT: atraumatic, normocephalic Eye exam: PRESENT: conjunctiva pink, EOMI, PERRLA. ABSENT: scleral icterus Ear exam: PRESENT: normal external ear exam Mouth exam: PRESENT: moist, tongue midline Neck exam: ABSENT: carotid bruit, JVD, lymphadenopathy, thyromegaly Respiratory exam: PRESENT: clear to auscultation iris. ABSENT: rales, rhonchi, wheezes Cardiovascular exam: PRESENT: RRR. ABSENT: diastolic murmur, rubs, systolic murmur Pulses: PRESENT: normal dorsalis pedis pul Vascular exam: PRESENT: normal capillary refill GI/Abdominal exam: PRESENT: normal bowel sounds, soft. ABSENT: distended, guarding, mass, organolmegaly, rebound, tenderness Rectal exam: PRESENT: deferred Extremities exam: PRESENT: full ROM. ABSENT: calf tenderness, clubbing, pedal edema Neurological exam: PRESENT: alert, awake, oriented to person, oriented to place , oriented to time, oriented to situation. ABSENT: motor sensory deficit Psychiatric exam: PRESENT: appropriate affect, normal mood. ABSENT: homicidal ideation, suicidal ideation Skin exam: PRESENT: dry, intact, warm. ABSENT: cyanosis, rash Results Laboratory Results: 08/31/17 04:56 08/31/17 04:56 08/31/17 08/31/17 08/31/17 04:56 04:56 04:56 WBC 29.5 H RBC 3.88 Hgb 12.6 Hct 37.0 MCV 95 MCH 32.4 MCHC 34.0 RDW 13.5 Plt Count 171 Seg Neutrophils % Not Reportable Lymphocytes % Not Reportable Monocytes % Not Reportable Eosinophils % Not Reportable Basophils % Not Reportable Absolute Neutrophils Not Reportable Absolute Lymphocytes Not Reportable Absolute Monocytes Not Reportable Absolute Eosinophils Not Reportable Absolute Basophils Not Reportable Sodium 132.9 L Potassium 4.1 Chloride 105 Carbon Dioxide 20 L Anion Gap 8 BUN 10 Creatinine 0.91 Est GFR ( Amer) > 60 Est GFR (Non-Af Amer) 58 L Glucose 81 Calcium 8.4 Magnesium 1.8 TSH 1.14 Impressions: Abdomen/Pelvis CT 08/30/17 13:29 IMPRESSION: 1. No bowel obstruction. Air-fluid levels at the colon and at the rectum, suggestive of diarrhea. 2. Small loculated paraumbilical hernia with segments of the colon protruding into the hernia defect. 3. 11 mm hyperdense nodule at the superior pole of the right kidney, neoplasm cannot be excluded. 4. Cystic lesions at the bilateral adnexal regions. These can be better characterized with nonemergent pelvic ultrasound. Chest X-Ray 08/30/17 13:29 IMPRESSION: Findings consistent with COPD. Chronic left basilar scarring and elevation left hemidiaphragm. Assessment & Plan - Diagnosis (2) Leukocytosis Is this a current diagnosis for this admission?: Yes Plan: Improving (3) Hypothyroidism (acquired) Is this a current diagnosis for this admission?: Yes Plan: Continue her home Synthroid (4) Hypertension Qualifiers: Hypertension type: essential hypertension Qualified Code(s): I10 - Essential (primary) hypertension Is this a current diagnosis for this admission?: Yes Plan: Continue her home medication
[2017-08-31] MEDS: CIPROFLOXACIN 400 MG/D5W RTU 400 MG/200 ML RTUPB IV SCH (22:19)
[2017-09-01] MEDS: PROMETHAZINE HCL INJ 25 MG/1 ML VIAL IV PRN ×4 (02:54→21:01)
[2017-09-01] MEDS: NORMAL SALINE 1000 ML 1,000 ML IV PRN ×2 (02:59→18:19)
[2017-09-01] MEDS: LANSOPRAZOLE 30 MG TAB.RAP.DR PO SCH (05:31)
[2017-09-01] MEDS: METRONIDAZOLE 500 MG/NS RTU 500 MG/100 ML RTUPB IV SCH ×3 (05:31→18:19)
[2017-09-01 06:48] LABS: HEMATOCRIT 36.7 % (36.0-47.0); HEMOGLOBIN 12.5 g/dL (12.0-15.5); MEAN CORPUSCULAR HEMOGLOBIN 32.6 pg (27.0-33.4); MEAN CORPUSCULAR HGB CONC 34.2 g/dL (32.0-36.0); MEAN CORPUSCULAR VOLUME 96 fl (80-97); PLATELET COUNT 175 10^3/uL (150-450); RED BLOOD COUNT 3.84 10^6/uL (3.72-5.28); RED CELL DISTRIBUTION WIDTH 13.6 % (11.5-14.0); WHITE BLOOD COUNT 25.6 10^3/uL (4.0-10.5)
[2017-09-01 07:12] LABS: ANION GAP 10 (5-19); BLOOD UREA NITROGEN 11 mg/dL (7-20); CALCIUM 8.2 mg/dL (8.4-10.2); CARBON DIOXIDE 19 mmol/L (22-30); CHLORIDE 108 mmol/L (98-107); GLUCOSE 95 mg/dL (75-110); POTASSIUM 3.9 mmol/L (3.6-5.0); SODIUM 136.6 mmol/L (137-145)
[2017-09-01 08:06] LABS: ABSOLUTE LYMPHOCYTES# (MANUAL) 16.6 10^3/uL (0.5-4.7); ABSOLUTE MONOCYTES # (MANUAL) 0.5 10^3/uL (0.1-1.4); ABSOLUTE NEUTROPHILS# (MANUAL) 8.2 10^3/uL (1.7-8.2); BASOPHILS % (MANUAL) 0 % (0-2); EOSINOPHILS % (MANUAL) 1 % (0-6); LYMPHOCYTES % (MANUAL) 65 % (13-45); MONOCYTES % (MANUAL) 2 % (3-13); SEGMENTED NEUTROPHILS % (MAN) 32 % (42-78); TOTAL CELLS COUNTED 100
[2017-09-01 08:08] LABS: PLATELET COMMENT ADEQUATE; RBC MORPHOLOGY COMMENT NORMO-CYTIC/CHROMIC; SMUDGE CELLS PRESENT
[2017-09-01] MEDS: ENOXAPARIN SODIUM INJ 30 MG/0.3 ML DISP.SYRIN SUBCUT SCH (12:25)
[2017-09-01] MEDS: CIPROFLOXACIN 400 MG/D5W RTU 400 MG/200 ML RTUPB IV SCH ×2 (12:25→21:02)
[2017-09-01] MEDS ORDERED: ONDANSETRON HCL INJ/PF 4 MG/2 ML SDV IV PRN (13:30)
--- NOTE | 2017-09-01 20:01 | PDOC PROGRESS REPORT ---
Subjective Progress Note for:: 09/01/17 Subjective:: Patient resting in bed and sleeping quietly. Her vital signs are stable and her white cell count is trending down. Reason For Visit: C. DIFFICILE COLITIS Physical Exam Vital Signs: Temp Pulse Resp BP Pulse Ox 98.0 F 95 16 142/81 H 100 09/01/17 15:46 09/01/17 15:46 09/01/17 15:46 09/01/17 15:46 09/01/17 15:46 Intake & Output 08/31/17 09/01/17 09/02/17 06:59 06:59 06:59 Intake Total 3154 1900 Output Total 200 Balance 2954 1900 Weight 84.9 kg 90.6 kg Results Laboratory Results: 09/01/17 06:06 09/01/17 06:06 09/01/17 09/01/17 06:06 06:06 WBC 25.6 H RBC 3.84 Hgb 12.5 Hct 36.7 MCV 96 MCH 32.6 MCHC 34.2 RDW 13.6 Plt Count 175 Seg Neutrophils % Not Reportable Lymphocytes % Not Reportable Monocytes % Not Reportable Eosinophils % Not Reportable Basophils % Not Reportable Absolute Neutrophils Not Reportable Absolute Lymphocytes Not Reportable Absolute Monocytes Not Reportable Absolute Eosinophils Not Reportable Absolute Basophils Not Reportable Sodium 136.6 L Potassium 3.9 Chloride 108 H Carbon Dioxide 19 L Anion Gap 10 BUN 11 Creatinine 0.89 Est GFR ( Amer) > 60 Est GFR (Non-Af Amer) > 60 Glucose 95 Calcium 8.2 L Impressions: Abdomen/Pelvis CT 08/30/17 13:29 IMPRESSION: 1. No bowel obstruction. Air-fluid levels at the colon and at the rectum, suggestive of diarrhea. 2. Small loculated paraumbilical hernia with segments of the colon protruding into the hernia defect. 3. 11 mm hyperdense nodule at the superior pole of the right kidney, neoplasm cannot be excluded. 4. Cystic lesions at the bilateral adnexal regions. These can be better characterized with nonemergent pelvic ultrasound. Chest X-Ray 08/30/17 13:29 IMPRESSION: Findings consistent with COPD. Chronic left basilar scarring and elevation left hemidiaphragm. Assessment & Plan - Diagnosis (1) Gastroenteritis Is this a current diagnosis for this admission?: Yes Plan: Her diarrhea is subsiding. I will continue IV metronidazole and Cipro. (2) Leukocytosis Is this a current diagnosis for this admission?: Yes Plan: Improving. Her white cell count is trending down from 36.8-25.6 (3) Hypothyroidism (acquired) Is this a current diagnosis for this admission?: Yes Plan: Continue her home Synthroid (4) Hypertension Qualifiers: Hypertension type: essential hypertension Qualified Code(s): I10 - Essential (primary) hypertension Is this a current diagnosis for this admission?: Yes Plan: Continue her home medication
[2017-09-02] MEDS: METRONIDAZOLE 500 MG/NS RTU 500 MG/100 ML RTUPB IV SCH ×4 (05:18→18:57)
[2017-09-02 05:33] LABS: HEMATOCRIT 36.7 % (36.0-47.0); HEMOGLOBIN 12.7 g/dL (12.0-15.5); MEAN CORPUSCULAR HEMOGLOBIN 32.7 pg (27.0-33.4); MEAN CORPUSCULAR HGB CONC 34.6 g/dL (32.0-36.0); MEAN CORPUSCULAR VOLUME 95 fl (80-97); PLATELET COUNT 188 10^3/uL (150-450); RED BLOOD COUNT 3.89 10^6/uL (3.72-5.28); RED CELL DISTRIBUTION WIDTH 13.3 % (11.5-14.0); WHITE BLOOD COUNT 29.5 10^3/uL (4.0-10.5)
[2017-09-02 05:46] LABS: ANION GAP 7 (5-19); BLOOD UREA NITROGEN 6 mg/dL (7-20); CALCIUM 7.8 mg/dL (8.4-10.2); CARBON DIOXIDE 20 mmol/L (22-30); CHLORIDE 109 mmol/L (98-107); GLUCOSE 106 mg/dL (75-110); POTASSIUM 3.7 mmol/L (3.6-5.0); SODIUM 136.2 mmol/L (137-145)
[2017-09-02] MEDS: LANSOPRAZOLE 30 MG TAB.RAP.DR PO SCH (06:33)
[2017-09-02 07:29] LABS: ABSOLUTE LYMPHOCYTES# (MANUAL) 21.5 10^3/uL (0.5-4.7); ABSOLUTE MONOCYTES # (MANUAL) 1.2 10^3/uL (0.1-1.4); ABSOLUTE NEUTROPHILS# (MANUAL) 6.8 10^3/uL (1.7-8.2); BASOPHILS % (MANUAL) 0 % (0-2); EOSINOPHILS % (MANUAL) 0 % (0-6); MONOCYTES % (MANUAL) 4 % (3-13); SEGMENTED NEUTROPHILS % (MAN) 23 % (42-78); TOTAL CELLS COUNTED 100
[2017-09-02 07:32] LABS: BURR CELLS SLIGHT; LYMPHOCYTES % (MANUAL) 73 % (13-45); PLATELET COMMENT ADEQUATE; ROULEAUX SLIGHT; SMUDGE CELLS PRESENT; TOXIC GRANULATION SLIGHT
[2017-09-02] MEDS: NORMAL SALINE 1000 ML 1,000 ML IV PRN (08:14)
--- NOTE | 2017-09-02 08:31 | PDOC CONSULTATION ---
Consultation Consult Date: 09/02/17 Attending physician:: MILVIA MUNOZ Consult reason:: Leukocytosis, Alzheimer's dementia History of Present Illness Admission Date/PCP: 08/30/17 18:15 SEAN MARTINO MD Patient complains of: Leukocytosis History of Present Illness: PRAFUL SILVA is a 87 year old female with longstanding history of Alzheimer 's dementia, recent diarrhea and nausea, foul smelling stool, concerned for cdiff, with recently worsening weakness, confusion, ultimately was brought into the ED here, did have explosive diarrhea foul-smelling and was felt to have C. difficile. C. difficile assay here has been negative, but patient has been treated with Flagyl and Cipro with improvement in the diarrhea. However the dementia has waxed and waned, and over the last 24 hours has certainly worsened. Her mental status is very poor currently. Over the last 6-12 months , the family does note that her mental status has progressively worsened, consistent with worsening Alzheimer's dementia. Otherwise, we were consulted initially for leukocytosis, she has white count of 20-30,000 while admitted, primarily lymphocytosis, peripheral smear does note smudge cells consistent with CLL, in discussion with her son, Iftikhar, she had this diagnosis many years before, but is not followed [employer] for over 5 years now. Past Medical History Cardiac Medical History: Reports: Hyperlipidema, Hypertension Denies: Atrial Fibrillation, Congestive Heart Failure, Myocardial Infarction Pulmonary Medical History: Reports: Pneumonia Denies: Asthma, Bronchitis, Chronic Obstructive Pulmonary Disease (COPD), Tuberculosis Neurological Medical History: Denies: Migraine, Seizures Endocrine Medical History: Denies: Diabetes Mellitus Type 1, Diabetes Mellitus Type 2 Renal/ Medical History: Denies: End Stage Renal Disease Malignancy Medical History: Reports: Leukemia - CLL GI Medical History: Denies: Gastroesophageal Reflux Disease, Hepatitis, Hiatal Hernia Musculoskeltal Medical History: Reports: Arthritis Psychiatric Medical History: Reports: Dementia - Alzheimer's Denies: Attention Deficit Hyperactivity Disorder, Bipolar Disorder, Depression - anxiety Hematology: Denies: Anemia, Sickle Cell Disease Past Surgical History Past Surgical History: Reports: Orthopedic Surgery - [place] left leg, right knee replacement, Other - Operative for bowel perforation due to diverticulitis Denies: Amputation, Mastectomy, Pacemaker Social History Information Source: Relative Smoking Status: Never Smoker Frequency of Alcohol Use: None Hx Recreational Drug Use: No Drugs: None Hx Prescription Drug Abuse: No - Advance Directive Resuscitation Status: Full Code Family History Family History: Reviewed & Not Pertinent, Hypertension Parental Family History Reviewed: Yes Children Family History Reviewed: Yes Sibling(s) Family History Reviewed.: Yes Medication/Allergy Home Medications: Cholecalciferol (Vitamin D3) [Vitamin D3 1000 unit Capsule] 1,000 unit PO DAILY 10/07/11 Metoprolol Succinate [Toprol Xl 50 mg Tab.sr] 100 mg PO DAILY 10/07/11 Levothyroxine Sodium [Synthroid] 100 mcg PO Q6AM 11/11/13 Losartan Potassium 50 mg PO DAILY 11/11/13 Benzonatate [Tessalon Perle 100 mg Capsule] 200 mg PO Q8HP PRN 08/31/17 Calcium Polycarbophil [Fiber-Lax] 1,250 mg PO DAILY 08/31/17 Cyanocobalamin (Vitamin B-12) [Vitamin B-12 1000 Mcg Tablet] 1,000 mcg PO DAILY 08/31/17 Lactulose [Cephulac Syrup 20 gm/30 ml Udcup] 20 gm PO DAILY 08/31/17 Ondansetron [Zofran Odt 4 mg Tablet] 4 mg PO Q12HP PRN 08/31/17 Allergies/Adverse Reactions: No Known Allergies Allergy (Verified 06/08/17 09:46) Review of Systems ROS unobtainable: Due to mental status Physical Exam Vital Signs: Temp Pulse Resp BP Pulse Ox 98.8 F 90 17 138/70 H 96 09/02/17 00:00 09/02/17 00:00 09/02/17 00:00 09/02/17 00:00 09/02/17 00:00 Intake & Output 09/01/17 09/02/17 09/03/17 06:59 06:59 06:59 Intake Total 3154 3450 Output Total 200 Balance 2954 3450 Weight 90.6 kg 88.6 kg General appearance: PRESENT: no acute distress, well-developed, well-nourished Head exam: PRESENT: atraumatic, normocephalic Eye exam: PRESENT: conjunctiva pink, EOMI, PERRLA. ABSENT: scleral icterus Ear exam: PRESENT: normal external ear exam Mouth exam: PRESENT: moist, tongue midline Neck exam: ABSENT: carotid bruit, JVD, lymphadenopathy, thyromegaly Respiratory exam: PRESENT: clear to auscultation iris. ABSENT: rales, rhonchi, wheezes Cardiovascular exam: PRESENT: RRR. ABSENT: diastolic murmur, rubs, systolic murmur Pulses: PRESENT: normal dorsalis pedis pul Vascular exam: PRESENT: normal capillary refill GI/Abdominal exam: PRESENT: normal bowel sounds, soft. ABSENT: distended, guarding, mass, organolmegaly, rebound, tenderness Rectal exam: PRESENT: deferred Extremities exam: PRESENT: full ROM. ABSENT: calf tenderness, clubbing, pedal edema Neurological exam: PRESENT: alert, awake, oriented to person, oriented to place , oriented to time, oriented to situation, CN II-XII grossly intact. ABSENT: motor sensory deficit Psychiatric exam: PRESENT: appropriate affect, normal mood. ABSENT: homicidal ideation, suicidal ideation Skin exam: PRESENT: dry, intact, warm. ABSENT: cyanosis, rash Results Laboratory Results: 09/02/17 04:46 09/02/17 04:46 09/02/17 09/02/17 04:46 04:46 WBC 29.5 H RBC 3.89 Hgb 12.7 Hct 36.7 MCV 95 MCH 32.7 MCHC 34.6 RDW 13.3 Plt Count 188 Seg Neutrophils % Not Reportable Lymphocytes % Not Reportable Monocytes % Not Reportable Eosinophils % Not Reportable Basophils % Not Reportable Absolute Neutrophils Not Reportable Absolute Lymphocytes Not Reportable Absolute Monocytes Not Reportable Absolute Eosinophils Not Reportable Absolute Basophils Not Reportable Sodium 136.2 L Potassium 3.7 Chloride 109 H Carbon Dioxide 20 L Anion Gap 7 BUN 6 L Creatinine 0.75 Est GFR ( Amer) > 60 Est GFR (Non-Af Amer) > 60 Glucose 106 Calcium 7.8 L Impressions: Abdomen/Pelvis CT 08/30/17 13:29 IMPRESSION: 1. No bowel obstruction. Air-fluid levels at the colon and at the rectum, suggestive of diarrhea. 2. Small loculated paraumbilical hernia with segments of the colon protruding into the hernia defect. 3. 11 mm hyperdense nodule at the superior pole of the right kidney, neoplasm cannot be excluded. 4. Cystic lesions at the bilateral adnexal regions. These can be better characterized with nonemergent pelvic ultrasound. Chest X-Ray 08/30/17 13:29 IMPRESSION: Findings consistent with COPD. Chronic left basilar scarring and elevation left hemidiaphragm. Status: Image reviewed by me Assessment & Plan - Diagnosis (1) CLL (chronic lymphocytic leukemia) Is this a current diagnosis for this admission?: Yes Plan: Patient does have CLL most likely, we will send a flow cytometry today for confirmation, but at present does not need active therapy since hemoglobin is greater than 10 and platelets are greater than 100. I do not believe this is contributing to her worsening mental status, but it is contributing to her leukocytosis. We will follow her as an outpatient. (2) Alzheimer's dementia Qualifiers: Alzheimer's disease onset: late-onset Dementia behavioral disturbance: with behavioral disturbance Qualified Code(s): G30.1 - Alzheimer's disease with late onset; F02.81 - Dementia in other diseases classified elsewhere with behavioral disturbance; F02.81 - Dementia in other diseases classified elsewhere with behavioral disturbance; F02.81 - Dementia in other diseases classified elsewhere with behavioral disturbance Is this a current diagnosis for this admission?: Yes Plan: Patient does have Alzheimer's dementia, she would fit criteria, from what the family describes this may be late stage dementia at this point, her daughter Shelia, phone #[phone], wants to make sure that ultimately we keep her comfortable, so she was interested in discussing her case with hospice. I have contacted community hospice, Maria Del Carmen the administrative liaison, will contact the daughter and make an appointment to see her today. Ultimately she should be dischargeable with hospice in assisted living facility. - Time Time Spent: Greater than 70 Minutes - Inpatient Certification Based on my medical assessment, after consideration of the patient's comorbidities, presenting symptoms, or acuity I expect that the services needed warrant INPATIENT care.: Yes I certify that my determination is in accordance with my understanding of Medicare's requirements for reasonable and necessary INPATIENT services [42 CFR 412.3e].: Yes Medical Necessity: Need for IV Antibiotics, Risk of Complication if Not Cared For in Hospital
[2017-09-02] MEDS: CIPROFLOXACIN 400 MG/D5W RTU 400 MG/200 ML RTUPB IV SCH ×2 (10:33→23:07)
[2017-09-02] MEDS: ENOXAPARIN SODIUM INJ 40 MG/0.4 ML DISP.SYRIN SUBCUT SCH (10:37)
[2017-09-02] MEDS ORDERED: BENZONATATE 100 MG CAPSULE PO PRN (10:49)
[2017-09-02] MEDS ORDERED: ONDANSETRON 4 MG TAB.RAPDIS PO PRN (10:49)
[2017-09-02] MEDS ORDERED: CHOLECALCIFEROL PO SCH (11:00)
[2017-09-02] MEDS ORDERED: [UNRECOGNIZED DRUG - OTHER] PO SCH (11:00)
[2017-09-02] MEDS: METOPROLOL SUCCINATE 50 MG TAB.SR.24H PO SCH (12:40)
[2017-09-02] MEDS: CYANOCOBALAMIN (VITAMIN B-12) 1,000 MCG TABLET PO SCH (12:40)
[2017-09-02] MEDS: CHOLECALCIFEROL (D3) 1,000 UNIT TABLET PO SCH (12:40)
[2017-09-02] MEDS: LACTULOSE SYRUP 20 GM/30 ML UDCUP PO SCH (12:41)
[2017-09-02 16:38] LABS: PATH REVIEW PATHOLOGIST REVIEWED
--- NOTE | 2017-09-02 19:11 | PDOC PROGRESS REPORT ---
Subjective Subjective:: Patient reports that she does not feel well. She has nausea and constipation. I restarted her lactulose. Patient also evaluated by Dr. Blackmon who wants to review her peripheral smear. Reason For Visit: C. DIFFICILE COLITIS Physical Exam Vital Signs: Temp Pulse Resp BP Pulse Ox 98.3 F 75 17 128/64 H 97 09/02/17 16:23 09/02/17 16:23 09/02/17 16:23 09/02/17 16:23 09/02/17 16:23 Intake & Output 09/01/17 09/02/17 09/03/17 06:59 06:59 06:59 Intake Total 3154 4750 322 Output Total 200 300 Balance 2954 4750 22 Weight 90.6 kg 88.6 kg General appearance: PRESENT: no acute distress Head exam: PRESENT: atraumatic Mouth exam: PRESENT: moist Neck exam: ABSENT: carotid bruit, JVD, lymphadenopathy, thyromegaly Respiratory exam: PRESENT: clear to auscultation iris. ABSENT: rales, rhonchi, wheezes Cardiovascular exam: PRESENT: RRR. ABSENT: diastolic murmur, rubs, systolic murmur GI/Abdominal exam: PRESENT: normal bowel sounds, soft. ABSENT: distended, guarding, mass, organolmegaly, rebound, tenderness Neurological exam: PRESENT: alert, awake Results Laboratory Results: 09/02/17 04:46 09/02/17 04:46 09/02/17 09/02/17 04:46 04:46 WBC 29.5 H RBC 3.89 Hgb 12.7 Hct 36.7 MCV 95 MCH 32.7 MCHC 34.6 RDW 13.3 Plt Count 188 Seg Neutrophils % Not Reportable Lymphocytes % Not Reportable Monocytes % Not Reportable Eosinophils % Not Reportable Basophils % Not Reportable Absolute Neutrophils Not Reportable Absolute Lymphocytes Not Reportable Absolute Monocytes Not Reportable Absolute Eosinophils Not Reportable Absolute Basophils Not Reportable Sodium 136.2 L Potassium 3.7 Chloride 109 H Carbon Dioxide 20 L Anion Gap 7 BUN 6 L Creatinine 0.75 Est GFR ( Amer) > 60 Est GFR (Non-Af Amer) > 60 Glucose 106 Calcium 7.8 L Impressions: Abdomen/Pelvis CT 08/30/17 13:29 IMPRESSION: 1. No bowel obstruction. Air-fluid levels at the colon and at the rectum, suggestive of diarrhea. 2. Small loculated paraumbilical hernia with segments of the colon protruding into the hernia defect. 3. 11 mm hyperdense nodule at the superior pole of the right kidney, neoplasm cannot be excluded. 4. Cystic lesions at the bilateral adnexal regions. These can be better characterized with nonemergent pelvic ultrasound. Chest X-Ray 08/30/17 13:29 IMPRESSION: Findings consistent with COPD. Chronic left basilar scarring and elevation left hemidiaphragm. Assessment & Plan - Diagnosis (1) Gastroenteritis Is this a current diagnosis for this admission?: Yes Plan: Continue Flagyl and Cipro. (2) Leukocytosis Is this a current diagnosis for this admission?: Yes Plan: Trending down (3) Hypothyroidism (acquired) Is this a current diagnosis for this admission?: Yes Plan: Continue her home Synthroid (4) Hypertension Qualifiers: Hypertension type: essential hypertension Qualified Code(s): I10 - Essential (primary) hypertension Is this a current diagnosis for this admission?: Yes Plan: Continue her home medication
[2017-09-03] MEDS: METRONIDAZOLE 500 MG/NS RTU 500 MG/100 ML RTUPB IV SCH ×3 (00:41→14:53)
[2017-09-03] MEDS: NORMAL SALINE 1000 ML 1,000 ML IV PRN (05:24)
[2017-09-03] MEDS: LANSOPRAZOLE 30 MG TAB.RAP.DR PO SCH (05:28)
[2017-09-03] MEDS ORDERED: LEVOTHYROXINE SODIUM 0.1 MG TABLET PO SCH (06:00)
[2017-09-03] MEDS ORDERED: LEVOTHYROXINE SODIUM 0.05 MG TABLET PO SCH (06:00)
--- NOTE | 2017-09-03 07:59 | PDOC PROGRESS REPORT ---
Subjective Progress Note for:: 09/03/17 Subjective:: Pt feels better, seems more alert this am, tells me nausea is better, really wants to get back to [facility], nursing notes she is getting back and forth to restroom as she was before admit. Discussed this am extensively with Son, Iftikhar, who is comfortable now w/ hospice admission, discussed with Maria Del Carmen yesterday and Daughter Shelia, everybody on board with d/c today if [employer] can take her back. Will not need further atbx on dc as bowel infection fully treated and Cdiff testing was negative although pt treated fully for this as well Reason For Visit: C. DIFFICILE COLITIS Physical Exam Vital Signs: Temp Pulse Resp BP Pulse Ox 97.7 F 76 16 129/57 H 94 09/02/17 23:36 09/02/17 23:36 09/02/17 23:36 09/02/17 23:36 09/02/17 23:36 Intake & Output 09/02/17 09/03/17 09/04/17 06:59 06:59 06:59 Intake Total 4750 2447 Output Total 300 Balance 4750 2147 Weight 88.6 kg 89.9 kg General appearance: PRESENT: no acute distress, well-developed, well-nourished Head exam: PRESENT: atraumatic, normocephalic Eye exam: PRESENT: conjunctiva pink, EOMI, PERRLA. ABSENT: scleral icterus Ear exam: PRESENT: normal external ear exam Mouth exam: PRESENT: moist, tongue midline Neck exam: ABSENT: carotid bruit, JVD, lymphadenopathy, thyromegaly Respiratory exam: PRESENT: clear to auscultation iris. ABSENT: rales, rhonchi, wheezes Cardiovascular exam: PRESENT: RRR. ABSENT: diastolic murmur, rubs, systolic murmur Pulses: PRESENT: normal dorsalis pedis pul Vascular exam: PRESENT: normal capillary refill GI/Abdominal exam: PRESENT: normal bowel sounds, soft. ABSENT: distended, guarding, mass, organolmegaly, rebound, tenderness Rectal exam: PRESENT: deferred Extremities exam: PRESENT: full ROM. ABSENT: calf tenderness, clubbing, pedal edema Neurological exam: PRESENT: alert, awake, oriented to person, oriented to place , oriented to time, oriented to situation, CN II-XII grossly intact. ABSENT: motor sensory deficit Psychiatric exam: PRESENT: appropriate affect, normal mood. ABSENT: homicidal ideation, suicidal ideation Skin exam: PRESENT: dry, intact, warm. ABSENT: cyanosis, rash Results Laboratory Results: 09/02/17 04:46 09/02/17 04:46 Impressions: Abdomen/Pelvis CT 08/30/17 13:29 IMPRESSION: 1. No bowel obstruction. Air-fluid levels at the colon and at the rectum, suggestive of diarrhea. 2. Small loculated paraumbilical hernia with segments of the colon protruding into the hernia defect. 3. 11 mm hyperdense nodule at the superior pole of the right kidney, neoplasm cannot be excluded. 4. Cystic lesions at the bilateral adnexal regions. These can be better characterized with nonemergent pelvic ultrasound. Chest X-Ray 08/30/17 13:29 IMPRESSION: Findings consistent with COPD. Chronic left basilar scarring and elevation left hemidiaphragm. Assessment & Plan - Diagnosis (1) CLL (chronic lymphocytic leukemia) Is this a current diagnosis for this admission?: Yes Plan: Will f/u flow cytometry but this is CLL, no further treatment will be needed (2) Alzheimer's dementia Qualifiers: Alzheimer's disease onset: late-onset Dementia behavioral disturbance: with behavioral disturbance Qualified Code(s): G30.1 - Alzheimer's disease with late onset; F02.81 - Dementia in other diseases classified elsewhere with behavioral disturbance; F02.81 - Dementia in other diseases classified elsewhere with behavioral disturbance; F02.81 - Dementia in other diseases classified elsewhere with behavioral disturbance Is this a current diagnosis for this admission?: Yes Plan: End stages, plan for d/c to assisted living with hospice on board. - Time Time Spent with patient: 35 or more minutes
--- NOTE | 2017-09-03 09:25 | PDOC TRANSFER SUMMARY ---
General - Admit/Disc Date/PCP Admission Date/Primary Care Provider: 08/30/17 18:15 SEAN MARTINO MD Discharge Date: 09/03/17 - Discharge Diagnosis (1) Gastroenteritis Is this a current diagnosis for this admission?: Yes (2) Leukocytosis Is this a current diagnosis for this admission?: Yes (3) Hypothyroidism (acquired) Is this a current diagnosis for this admission?: Yes (4) Hypertension Is this a current diagnosis for this admission?: Yes (5) CLL (chronic lymphocytic leukemia) Is this a current diagnosis for this admission?: Yes - Additional Information Resuscitation Status: Full Code Discharge Diet: As Tolerated Discharge Activity: Activity As Tolerated, Balance Activity w/Rest Home Medications: Cholecalciferol (Vitamin D3) [Vitamin D3 1000 unit Capsule] 1,000 unit PO DAILY 10/07/11 Metoprolol Succinate [Toprol Xl 50 mg Tab.sr] 100 mg PO DAILY 10/07/11 Levothyroxine Sodium [Synthroid] 100 mcg PO Q6AM 11/11/13 Losartan Potassium 50 mg PO DAILY 11/11/13 Benzonatate [Tessalon Perle 100 mg Capsule] 200 mg PO Q8HP PRN 08/31/17 Calcium Polycarbophil [Fiber-Lax] 1,250 mg PO DAILY 08/31/17 Cyanocobalamin (Vitamin B-12) [Vitamin B-12 1000 mcg Tablet] 1,000 mcg PO DAILY 08/31/17 Lactulose [Cephulac Syrup 20 gm/30 ml Udcup] 20 gm PO DAILY 08/31/17 Ondansetron [Zofran Odt 4 mg Tablet] 4 mg PO Q12HP PRN 08/31/17 History of Present Illness Admission Date/PCP: 08/30/17 18:15 SEAN MARTINO MD History of Present Illness: PRAFUL SILVA is a 87 year old female who does not have significant medical history except hypothyroidism and hypertension brought from [facility] with chief complaints of generalized weakness, nausea, poor appetite and decreased activity. Patient was recently diagnosed with pneumonia for which she was treated with doxycycline and also urinary tract infection for which she was treated with Levaquin. Patient also noticed to have very foul-smelling watery diarrhea while she is at ER. There is no report of fever, chills, palpitation or diaphoresis. She has nausea but no vomiting or abdominal pain. No urinary complaints. No dizziness, blurring of vision or any seizure activity. Her initial blood workup is remarkable for severe leukocytosis of 36.8. Her CT of the abdomen and pelvis is unremarkable. Hospital Course Hospital Course: This is 87 years old female patient transferred from [facility] for weakness and diarrhea. Based on markedly leukocytosis and foul- smelling stool the diagnosis of Clostridium difficile colitis was entertained and patient started on p.o. Vanco and metronidazole. Her stool test for Clostridium difficile turn negative. Her leukocytosis explained by CLL. I discontinued vancomycin and I switch her metronidazole to IV and and added Cipro for her. Her diarrhea subsided and patient rather constipated. Except mild nausea patient has been doing well. Her vital signs are stable. Dr. Blackmon also has been involved in the management of this patient. Patient is stable for discharge. Physical Exam Vital Signs: Temp Pulse Resp BP Pulse Ox 97.7 F 74 17 140/73 H 95 09/03/17 07:31 09/03/17 07:31 09/03/17 07:31 09/03/17 07:31 09/03/17 07:31 Intake & Output 09/02/17 09/03/17 09/04/17 06:59 06:59 06:59 Intake Total 4750 2447 Output Total 300 Balance 4750 2147 Weight 88.6 kg 89.9 kg General appearance: PRESENT: no acute distress, well-developed, well-nourished Head exam: PRESENT: atraumatic, normocephalic Eye exam: PRESENT: conjunctiva pink, EOMI, scleral icterus Ear exam: PRESENT: normal external ear exam Mouth exam: PRESENT: moist Neck exam: ABSENT: carotid bruit Respiratory exam: PRESENT: clear to auscultation iris Cardiovascular exam: PRESENT: RRR. ABSENT: diastolic murmur, rubs, systolic murmur GI/Abdominal exam: PRESENT: normal bowel sounds, soft. ABSENT: distended, guarding, mass, organolmegaly, rebound, tenderness Rectal exam: PRESENT: deferred Extremities exam: PRESENT: full ROM. ABSENT: calf tenderness, clubbing, pedal edema Neurological exam: PRESENT: alert, awake, oriented to situation Psychiatric exam: PRESENT: appropriate affect, normal mood. ABSENT: homicidal ideation, suicidal ideation Skin exam: PRESENT: dry, intact, warm. ABSENT: cyanosis, rash Results Laboratory Results: 09/02/17 04:46 09/02/17 04:46 Impressions: Abdomen/Pelvis CT 08/30/17 13:29 IMPRESSION: 1. No bowel obstruction. Air-fluid levels at the colon and at the rectum, suggestive of diarrhea. 2. Small loculated paraumbilical hernia with segments of the colon protruding into the hernia defect. 3. 11 mm hyperdense nodule at the superior pole of the right kidney, neoplasm cannot be excluded. 4. Cystic lesions at the bilateral adnexal regions. These can be better characterized with nonemergent pelvic ultrasound. Chest X-Ray 08/30/17 13:29 IMPRESSION: Findings consistent with COPD. Chronic left basilar scarring and elevation left hemidiaphragm. Qualifiers - * PATIENT BEING DISCHARGED WITH ANY OF THE FOLLOWING DIAGNOSIS: No
[2017-09-03] MEDS ORDERED: CALCIUM POLYCARBOPHIL 1250 MG PO SCH (10:00)
[2017-09-03] MEDS ORDERED: LOSARTAN POTASSIUM 50 MG TABLET PO SCH (10:00)
[2017-09-03] MEDS: ENOXAPARIN SODIUM INJ 40 MG/0.4 ML DISP.SYRIN SUBCUT SCH (10:01)
[2017-09-03] MEDS: CIPROFLOXACIN 400 MG/D5W RTU 400 MG/200 ML RTUPB IV SCH (10:01)
[2017-09-03] MEDS: CYANOCOBALAMIN (VITAMIN B-12) 1,000 MCG TABLET PO SCH (10:02)
[2017-09-03] MEDS: LACTULOSE SYRUP 20 GM/30 ML UDCUP PO SCH (10:02)
[2017-09-03] MEDS: CHOLECALCIFEROL (D3) 1,000 UNIT TABLET PO SCH (10:02)
[2017-09-03] MEDS: METOPROLOL SUCCINATE 50 MG TAB.SR.24H PO SCH (10:03)
[2017-09-03 16:35] VITALS: BP 140/71
== END 2017-09-03 16:15 | DRG 392 ==
LOC: ER 13:10 → EH 18:15 → 5 20:07
PROVIDERS: ADMIT Internal Medicine; ATTEND Internal Medicine
DX: K52.9 Noninfective gastroenteritis and colitis, unspecified (principal); C91.10 Chronic lymphocytic leukemia of B-cell type not having achieved remission; F02.81 Dementia in other diseases classified elsewhere, unspecified severity, with behavioral disturbance; E03.9 Hypothyroidism, unspecified; I10 Essential (primary) hypertension; K42.9 Umbilical hernia without obstruction or gangrene; J44.9 Chronic obstructive pulmonary disease, unspecified; G30.1 Alzheimer's disease with late onset; E78.00 Pure hypercholesterolemia, unspecified; M19.90 Unspecified osteoarthritis, unspecified site; Z96.651 Presence of right artificial knee joint; Z79.82 Long term (current) use of aspirin; Z79.899 Other long term (current) drug therapy; Z82.49 Family history of ischemic heart disease and other diseases of the circulatory system
CPT/HCPCS: 36415; 71046; 74177; 80048; 80053; 81001; 83605; 83735; 84443; 84484; 85025; 87040; 87086; 87493; 88184; 88185; 93005; 93010; 96361; 96365; 99285; J0744; J1650; J2550; J3370; J7030; S0119